=== PATIENT | male | born 1945 | race Caucasian/White ===

== ENCOUNTER 2017-01-04 06:53 | Inpatient (IN) ==
[2017-01-04] MEDS ORDERED: NS 1,000 ML IV ONE ×2 (06:56→07:25)
[2017-01-04] MEDS ORDERED: DUONEB (A & A) INH ONE (06:56)
[2017-01-04] MEDS ORDERED: SOLU-MEDROL IV ONE (06:56)
[2017-01-04 07:23] LABS: ALLEN TEST NO; BE -5.8 mmoll (-3.0-3.0); BLOOD TYPE ARTERIAL; DRAW SITE R FEMORAL; METHB 0.6 % (0.0-1.5); O2(CT) 18.3 mL/dL (15.0-23.0); PCO2(98.6) 43 mmHg (35-45); PO2(98.6) 65 mmHg (60-100); SAMPLE BLOOD; SAO2 92.2 % (95.0-100.0); THB 14.5 g/dL (11.5-17.4); pH(98.6) 7.29 (7.35-7.45)
--- NOTE | 2017-01-04 07:24 | Diag Imaging Result Doc PS360 ---
EXAM: CHEST-PORTABLE HISTORY: low O2 sat TECHNIQUE: AP portable at 0710 COMMENT: There are no previous studies available for comparison. Coarse interstitial opacities are present bilaterally suggesting pulmonary fibrosis. There is cardiomegaly. Possibility of superimposed pneumonia or pulmonary edema cannot be excluded in the absence of previous studies for comparison. Basilar honeycombing is noted on the previous abdominal CAT scan of 01/07/2013. IMPRESSION: Pulmonary fibrosis. Electronically signed by Travis Daniel 01/04/2017 7:22 AM
[2017-01-04] MEDS ORDERED: VANCOMYCIN 1 GM/NS 1 GM/250 ML IVPB IV ONE ×2 (07:25→10:00)
[2017-01-04] MEDS ORDERED: ZOSYN 3.375 GM/NS 3.375 GM/50 ML IVPB IV ONE (07:25)
[2017-01-04 07:27] LABS: MODALITY BI PAP
[2017-01-04 07:28] LABS: BASO% 0.2 % (0.0-0.8); EOS# 0.01 X1000 (0.0-0.7); EOS% 0.1 % (0.0-10.0); HEMATOCRIT 47.8 % (42.0-52.0); HEMOGLOBIN 15.3 g/dL (14.0-18.0); IMM GRAN# 0.07 X1000 (0.0-0.04); IMM GRAN% 0.4 % (0.0-0.5); LYMPH% 18.9 % (20.5-51.1); MCH 31.2 PG (27-31); MCV 97.6 FL (81-99); MONO# 0.98 X1000 (0.11-0.59); MONO% 5.6 % (1.7-9.3); MPV 10.6 FL (7.4-10.4); NEUT% 74.8 % (42.2-75.2); PLT 327 X1000 (130-400)
[2017-01-04 07:31] LABS: INR 1.28; PROTIME 13.7 Seconds (9.2-11.7); PTT 22.9 Seconds (22.0-36.0)
[2017-01-04 07:39] LABS: ALBUMIN 4.1 g/dL (3.5-5.0); CALCIUM 9.3 mg/dL (8.8-10.2); MAGNESIUM 2.7 mg/dL (1.5-2.7); POTASSIUM 5.1 mmol/L (3.5-5.1); TOTAL BILIRUBIN 0.95 mg/dL (0.20-1.00); TOTAL PROTEIN 8.1 g/dL (6.3-8.3)
[2017-01-04 07:49] LABS: URINE CULTURE NEEDED? NO; URINE MICRO REVIEW NEEDED? NO; URINE SOURCE CATH
[2017-01-04 07:56] LABS: BILIRUBIN URINE SMALL (NEGATIVE); BLOOD URINE NEGATIVE (NEGATIVE); COLOR YELLOW; GLUCOSE URINE NEGATIVE (NEGATIVE); LEUKOCYTES URINE NEGATIVE (NEGATIVE); NITRITE URINE NEGATIVE (NEGATIVE); PROTEIN URINE 30 mg/dL (NEGATIVE); SP GRAVITY URINE 1.026; TURBIDITY URINE HAZY (CLEAR); UR EPITHELIAL CELLS <10 /HPF (<10); URINE BACTERIA NEGATIVE /HPF; URINE RBC <10 /HPF (<10); URINE WBC <10 /HPF (<10); UROBILINOGEN URINE 2 mg/dL (NORMAL)
[2017-01-04 08:01] LABS: MANUAL DIFF NEEDED? NO
[2017-01-04] MEDS ORDERED: ATIVAN IV ONE (08:08)
[2017-01-04 08:09] LABS: UR AMPHETAMINES QUAL NONE DETECTED (NONE DETECT); UR BARBITUATES QUAL NONE DETECTED (NONE DETECT); UR BENZODIAZEPIN QUAL NONE DETECTED (NONE DETECT); UR CANNABINOIDS QUAL NONE DETECTED (NONE DETECT); UR COCAINE QUAL NONE DETECTED (NONE DETECT); UR METHADONE QUAL NONE DETECTED (NONE DETECT); UR OPIATES QUAL NONE DETECTED (NONE DETECT); UR OXYCODONE QUAL NONE DETECTED (NONE DETECT); UR PCP QUAL NONE DETECTED (NONE DETECT)
[2017-01-04] MEDS ORDERED: LEVOPHED 8 MG in D5 1/2 NS 250 ML IV SCH ×2 (08:15→09:00)
--- NOTE | 2017-01-04 08:41 | PROVIDER DOCUMENTATION ---
HPI-Respiratory General - General Chief Complaint: Shortness of Breath Stated Complaint: sob Time Seen by Provider: 01/04/17 06:56 Source: patient, family, EMS Allergies/Adverse Reactions: Patient Allergies Allergy/AdvReac Type Severity Reaction Status Date / Time No Known Allergies Allergy Verified 01/04/17 07:55 Home Medications: Home Medication List Medication Instructions Recorded Confirmed Last Taken Type Benzonatate 200 mg PO TID PRN 01/04/17 01/04/17 01/03/17 History Pantoprazole [Protonix] 40 mg PO DAILY@0700 01/04/17 01/04/17 01/03/17 History Prednisone 10 mg PO BID 01/04/17 01/03/17 History - History of Present Illness-Resp Nature of Presenting Problem: Pt was diagnosed with pulmonary fibrosis since one year ago. Been progressively getting worse. Severe SOB since one year ago and needs higher and higher O2 flows and could not keep any fluids down due to the distress. states that she could not take care of him at home any more. Pt's SO2=77% with 100% non- rebreather. Looks tired and lethargic, but can answer all questions. Refused to be intubated. Quality of Pain: reports: aching Severity in ED: reports: severe Onset/Duration: reports: other (One week ago) Timing: reports: still present, constant Context: denies: recent foreign travel, insect bite (possible tick), recent chemotherapy Exposure: reports: unknown cause Cough Quality/Degree: reports: moderate Episode Frequency: frequent episodes Current Respiratory Medication Therapy: Initiated see nurses note Modifying Factors: improves with: albuterol nebulizer, oxygen, rest, sitting upright Associated Symptoms: reports: cough, shortness of breath, wheezing. denies: fever/chills, flu-like symptoms Similar Symptoms Previously?: Yes Recently seen or treated by another doctor?: Yes Review of Systems - Adult - REVIEW OF SYSTEMS - ADULT Constitutional: reports: no symptoms reported Eyes: reports: no symptoms reported Ears, Nose, Mouth & Throat: reports: no symptoms reported Cardiovascular: reports: no symptoms reported. denies: chest pain, heart murmur Respiratory: reports: see HPI, chronic cough, dyspnea on exertion, shortness of breath, wheezing Gastrointestinal: reports: no symptoms reported Genitourinary: reports: no symptoms reported Musculoskeletal: reports: no symptoms reported Integumentary: reports: no symptoms reported Neurological: reports: no symptoms reported Psychiatric: reports: no symptoms reported Endocrine: reports: no symptoms reported Hematologic/Lymphatic: reports: no symptoms reported Allergic/Immunologic: reports: no symptoms reported All Other Systems: Reviewed and Negative Past History - Adult - PAST MEDICAL HISTORY-ADULT Review of Records: reports: Old Records Reviewed, Nursing Assessment Review, Medications Reviewed, Social history reviewed & non-contributory. Physical Exam-General - PHYSICAL EXAM-ADULT Initial Vital Signs Reviewed: Yes - CONSTITUTIONAL General Appearance: alert, moderate distress, cachetic, thin, lethargic. negative: anxious, combative - EYES Eyes: PERRL/EOMI, pink conjunctivae - HEAD, EARS, NOSE, MOUTH & THROAT HENMT: normocephalic/atraumatic, moist mucous membranes - NECK Neck: non-tender, full range of motion, supple - RESPIRATORY Respiratory: chest non-tender, lungs clear, normal breath sounds, no pleuratic chest pain, no respiratory distress, no accessory muscle use, respiratory distress - CARDIOVASCULAR Cardiovascular: normal peripheral pulses, regular rate, rhythm - GASTROINTESTINAL (ABDOMEN) Abdominal Exam: normal bowel sounds, non tender, soft, no organomegaly, no pulsatile mass - MUSCULOSKELETAL Back Exam: normal inspection, no CVA tenderness, no vertebral tenderness Extremity: normal range of motion, non-tender, normal gait, normal inspection - SKIN Integumentary: normal color, normal turgor, warm/dry - NEUROLOGIC Neurologic: no motor/sensory deficits, aphasia - PSYCHIATRIC Psych/Mental Status: normal mood/affect, normal thought content, normal thought process, oriented x 3 Progress - PLAN OF CARE/RESULTS Progress/Plan/Lab Results: Vital Signs - 8 hr 01/04/17 07:05 01/04/17 07:16 01/04/17 07:31 Temperature Pulse Rate 120 H 127 H Respiratory Rate 29 H 27 H Blood Pressure 107/74 99/55 O2 Sat by Pulse Oximetry 76 L 01/04/17 07:56 01/04/17 08:04 01/04/17 08:06 Temperature 97.6 F Pulse Rate 123 H 125 H 122 H Respiratory Rate 33 H 22 41 H Blood Pressure 94/71 94/71 O2 Sat by Pulse Oximetry 75 L 92 L 74 L Laboratory Results - last 24 hr 01/04/17 01/04/17 01/04/17 07:04 07:04 07:04 WBC 17.42 H RBC 4.90 Hgb 15.3 Hct 47.8 MCV 97.6 MCH 31.2 H MCHC 32.0 L RDW Std Deviation 13.8 Plt Count 327 MPV 10.6 H Immature Gran % (Auto) 0.4 Neut % (Auto) 74.8 Lymph % (Auto) 18.9 L [place] % (Auto) 5.6 Eos % (Auto) 0.1 Baso % (Auto) 0.2 Immature Gran # (Auto) 0.07 H Neut # (Auto) 13.03 H Lymph # (Auto) 3.30 [place] # (Auto) 0.98 H Eos # (Auto) 0.01 Baso # (Auto) 0.03 Segmented Neutrophils Not Reportable PT INR PTT (Actin FS) D-Dimer 1.68 H Specimen Type Sample Site pH pCO2 pO2 HCO3 Base Excess Oxyhemoglobin ABG O2 Sat (Calculated) ABG O2 Saturation ABG Carboxyhemoglobin ABG Methemoglobin Qamar Test A-a O2 Difference Total Hemoglobin Lactate Liter Flow Blood Gas Modality FiO2 % Inspiratory BiPAP Expiratory BiPAP Sodium 143 Potassium 5.1 Chloride 96 L Carbon Dioxide 24 L Anion Gap 23 BUN 40 H Creatinine 1.4 H Estimated GFR/1.73 m2 50 BUN/Creatinine Ratio 29 Glucose 127 H Calculated Osmolality 296 Calcium 9.3 Magnesium 2.7 Total Bilirubin 0.95 AST 146 H ALT 195 H Alkaline Phosphatase 72 Creatine Kinase 184 Troponin T Lce-K-Eiotfyfovmm Pept Total Protein 8.1 Albumin 4.1 Globulin 4.0 Albumin/Globulin Ratio 1.0 Lipase 41 Urine Source Urine Color Urine Turbidity Urine pH Ur Specific [place] Urine Protein Ur Glucose (Stick) Ur Ketones (Stick) Urine Blood Urine Nitrite Urine Bilirubin Urobilinogen Dipstick Urine Leukocytes Urine WBC (Auto) Urine RBC (Auto) U Epithel Cells (Auto) Urine Bacteria (Auto) Urine Opiates Screen Ur Oxycodone Screen Ur Methadone, Qual Ur Barbiturates Screen Ur Phencyclidine Scrn Ur Amphetamines Screen U Benzodiazepines Scrn Urine Cocaine Screen U Cannabinoids Screen 01/04/17 01/04/17 01/04/17 07:04 07:04 07:04 WBC RBC Hgb Hct MCV MCH MCHC RDW Std Deviation Plt Count MPV Immature Gran % (Auto) Neut % (Auto) Lymph % (Auto) [place] % (Auto) Eos % (Auto) Baso % (Auto) Immature Gran # (Auto) Neut # (Auto) Lymph # (Auto) [place] # (Auto) Eos # (Auto) Baso # (Auto) Segmented Neutrophils PT 13.7 H INR 1.28 PTT (Actin FS) 22.9 D-Dimer Specimen Type Sample Site pH pCO2 pO2 HCO3 Base Excess Oxyhemoglobin ABG O2 Sat (Calculated) ABG O2 Saturation ABG Carboxyhemoglobin ABG Methemoglobin Qamar Test A-a O2 Difference Total Hemoglobin Lactate Liter Flow Blood Gas Modality FiO2 % Inspiratory BiPAP Expiratory BiPAP Sodium Potassium Chloride Carbon Dioxide Anion Gap BUN Creatinine Estimated GFR/1.73 m2 BUN/Creatinine Ratio Glucose Calculated Osmolality Calcium Magnesium Total Bilirubin AST ALT Alkaline Phosphatase Creatine Kinase Troponin T 0.041 Bqj-[id number]-Fkxookexiys Pept 24900 H Total Protein Albumin Globulin Albumin/Globulin Ratio Lipase Urine Source Urine Color Urine Turbidity Urine pH Ur Specific [place] Urine Protein Ur Glucose (Stick) Ur Ketones (Stick) Urine Blood Urine Nitrite Urine Bilirubin Urobilinogen Dipstick Urine Leukocytes Urine WBC (Auto) Urine RBC (Auto) U Epithel Cells (Auto) Urine Bacteria (Auto) Urine Opiates Screen Ur Oxycodone Screen Ur Methadone, Qual Ur Barbiturates Screen Ur Phencyclidine Scrn Ur Amphetamines Screen U Benzodiazepines Scrn Urine Cocaine Screen U Cannabinoids Screen 01/04/17 01/04/17 01/04/17 07:20 07:42 07:42 WBC RBC Hgb Hct MCV MCH MCHC RDW Std Deviation Plt Count MPV Immature Gran % (Auto) Neut % (Auto) Lymph % (Auto) [place] % (Auto) Eos % (Auto) Baso % (Auto) Immature Gran # (Auto) Neut # (Auto) Lymph # (Auto) [place] # (Auto) Eos # (Auto) Baso # (Auto) Segmented Neutrophils PT INR PTT (Actin FS) D-Dimer Specimen Type ARTERIAL Sample Site R FEMORAL pH 7.29 L pCO2 43 pO2 65 HCO3 20.2 Base Excess -5.8 L Oxyhemoglobin 89.8 L* ABG O2 Sat (Calculated) 18.3 ABG O2 Saturation 92.2 L ABG Carboxyhemoglobin 1.90 ABG Methemoglobin 0.6 Qamar Test NO A-a O2 Difference 594.0 Total Hemoglobin 14.5 Lactate 6.00 H* Liter Flow 15.0 Blood Gas Modality BI PAP FiO2 % 100.0 Inspiratory BiPAP 12.0 Expiratory BiPAP 5.0 Sodium Potassium Chloride Carbon Dioxide Anion Gap BUN Creatinine Estimated GFR/1.73 m2 BUN/Creatinine Ratio Glucose Calculated Osmolality Calcium Magnesium Total Bilirubin AST ALT Alkaline Phosphatase Creatine Kinase Troponin T Syz-[id number]-Czcnfgwbqlz Pept Total Protein Albumin Globulin Albumin/Globulin Ratio Lipase Urine Source CATH Urine Color YELLOW Urine Turbidity HAZY Urine pH 5.0 Ur Specific [place] 1.026 Urine Protein 30 A Ur Glucose (Stick) NEGATIVE Ur Ketones (Stick) 10 A Urine Blood NEGATIVE Urine Nitrite NEGATIVE Urine Bilirubin SMALL A Urobilinogen Dipstick 2 A Urine Leukocytes NEGATIVE Urine WBC (Auto) <10 Urine RBC (Auto) <10 U Epithel Cells (Auto) <10 Urine Bacteria (Auto) NEGATIVE Urine Opiates Screen NONE DETECTED Ur Oxycodone Screen NONE DETECTED Ur Methadone, Qual NONE DETECTED Ur Barbiturates Screen NONE DETECTED Ur Phencyclidine Scrn NONE DETECTED Ur Amphetamines Screen NONE DETECTED U Benzodiazepines Scrn NONE DETECTED Urine Cocaine Screen NONE DETECTED U Cannabinoids Screen NONE DETECTED Orders Category Date Time Status Cardiac Monitoring DIRECTED Care 01/04/17 06:56 Active Saline Loc NOW Care 01/04/17 06:56 Active Physician/Provider Consults Routine Cons 01/04/17 08:31 Ordered CHEST-PORTABLE [RAD] Stat Exams 01/04/17 07:09 Completed ABG [RESP] Routine Lab 01/04/17 07:20 Completed BLOOD CULTURE [BLDCUL] Stat Lab 01/04/17 07:04 Results CBC WITH ELECTRONIC DIFF [HEME] Stat Lab 01/04/17 07:04 Completed CK PROFILE [SP CHEM] Q8H Lab 01/04/17 08:31 Uncollected CK PROFILE [SP CHEM] Q8H Lab 01/04/17 16:31 Uncollected CK PROFILE [SP CHEM] Q8H Lab 01/05/17 00:31 Uncollected CK PROFILE [SP CHEM] Stat Lab 01/04/17 07:04 Completed COMPREHENSIVE METABOLIC PANEL [CHEM] Stat Lab 01/04/17 07:04 Completed D-DIMER [CHEM] Stat Lab 01/04/17 07:04 Completed LACTATE, PLASMA [CHEM] Stat Lab 01/04/17 07:42 Ordered LIPASE [CHEM] Stat Lab 01/04/17 07:04 Completed MAGNESIUM [CHEM] Stat Lab 01/04/17 07:04 Completed PRO B-NATRIURETIC PEPTIDE Stat Lab 01/04/17 07:04 Completed PROTIME WITH INR [COAG] Stat Lab 01/04/17 07:04 Completed PTT [COAG] Stat Lab 01/04/17 07:04 Completed TROPONIN T Q8HR Lab 01/04/17 13:00 Ordered TROPONIN T Q8HR Lab 01/04/17 21:00 Ordered TROPONIN T Q8HR Lab 01/05/17 05:00 Ordered TROPONIN T Stat Lab 01/04/17 07:04 Completed UA NIMS W/REFLEX CULT [URINALYSIS] Stat Lab 01/04/17 07:42 Completed URINE DRUG SCREEN Stat Lab 01/04/17 07:42 Completed 0.9% Sodium Chloride Inj [Ns] 1,000 ml Med 01/04/17 06:56 Discontinued IV 999 mls/hr 0.9% Sodium Chloride Inj [Ns] 1,000 ml Med 01/04/17 07:25 Discontinued IV 999 mls/hr Albuterol 2.5MG/Ipratrop 0.5MG [Duoneb (A & A)] Med 01/04/17 06:56 Discontinued 3 ml INH NOW ONE Dextrose 5%-0.45% NaCl Inj [D5 1/2 Ns] 250 ml Med 01/04/17 08:15 Discontinued Norepinephrine [Levophed] 8 mg IV As Directed Dextrose 5%-0.45% NaCl Inj [D5 1/2 Ns] 250 ml Med 01/04/17 09:00 Active Norepinephrine [Levophed] 8 mg IV As Directed Lorazepam [Ativan] Med 01/04/17 08:08 Discontinued 0.5 mg IV NOW ONE Methylprednisolone Sod Succ [Solu-Medrol] Med 01/04/17 06:56 Discontinued 125 mg IV NOW ONE Piperacil/Tazobact 3.375 gm/Ns [Zosyn 3.375 gm/Ns] Med 01/04/17 07:25 Discontinued 3.375 gm in 50 ml IV NOW Vancomycin 1 gm/Ns Med 01/04/17 07:25 Discontinued 1 gm in 250 ml IV NOW Aerosol Treatments Routine Oth 01/04/17 06:58 Completed Aerosol Treatments Stat Oth 01/04/17 06:58 Completed EKG [EKG] Stat Ther 01/04/17 06:56 Ordered Echo Spec/Color Dop W/O Contra Routine Ther 01/04/17 08:31 Ordered Transfer/Admit Order [TRANSFER] Routine Transfer 01/04/17 08:26 Ordered Result Diagrams: 01/04/17 07:04 01/04/17 07:04 - REASSESSMENT Reassessment #1 Time Reassessed: 08:41 Status: improving (Pt is stable on Bi-PAP) - XRAY 1 XRAY Study: Chest Impression: Abnormal (Pulmonary fibrosis) - CONSULTS/PCP/HOSPITALIST Notification #1 *Consult/PCP/Hospitalist*: Kris/Dr. Erickson Time Discussed: 08:42 Consult Disposition: Will see in ED, Admit Departure - Departure Date of Disposition Decision: 01/04/17 Time of Disposition Decision: 08:43 DIAGNOSIS: Respiratory failure Disposition: ADMITTED INPATIENT 09 Certified Medical Emergency: Emergent Condition: Stable Referrals and Follow-Ups: Tong Lucio MD [Primary Care Provider] - - Critical Care Note This patient required my direct & personal management of CC.: Yes Total Time (mins): 45 Critical Care Statement: This patient required my direct personal management to treat or rule out processes, the absence of which, could potentiallly result in sudden, clinically significant life or limb threatening deterioration.
--- NOTE | 2017-01-04 08:46 | EKG Report ---
Test Performed on : 01/04/2017 07:09:41 AM Test Reason : SOB Blood Pressure : / mmHG Vent. Rate : 123 BPM Atrial Rate : 123 BPM P-R Int : 134 ms QRS Dur : 078 ms QT Int : 324 ms P-R-T Axes : 054 111 -42 degrees QTc Int : 463 ms Sinus tachycardia. Possible Left atrial enlargement Right axis deviation Possible Right ventricular hypertrophy ST \T\ T wave abnormality, consider inferior ischemia Abnormal ECG When compared with ECG of 07-JAN-2013 15:11, Vent. rate has increased BY [address] now depressed in Inferior leads T wave inversion now evident in Inferior leads Unconfirmed Result
[2017-01-04 08:52] VITALS: BP 90/65
[2017-01-04] MEDS ORDERED: LOVENOX SUBQ SCH (09:08)
[2017-01-04] MEDS ORDERED: PROTONIX IV SCH (09:08)
[2017-01-04] MEDS ORDERED: SODIUM CHLORIDE 0.9% INJ SCH (09:08)
[2017-01-04] MEDS ORDERED: VANCOMYCIN IV PER PHARMACY MISC SCH (09:08)
[2017-01-04] MEDS ORDERED: DUONEB (A & A) INH SCH (09:08)
[2017-01-04] MEDS ORDERED: DUONEB (A & A) INH PRN (09:08)
[2017-01-04 09:54] LABS: ALLEN TEST YES; BE -9.7 mmoll (-3.0-3.0); BLOOD TYPE ARTERIAL; DRAW SITE L RADIAL; METHB 0.8 % (0.0-1.5); O2(CT) 18.9 mL/dL (15.0-23.0); PCO2(98.6) 37 mmHg (35-45); PO2(98.6) 66 mmHg (60-100); SAMPLE BLOOD; SAO2 92.6 % (95.0-100.0); SRATE 4 BPM; THB 14.9 g/dL (11.5-17.4); pH(98.6) 7.26 (7.35-7.45)
[2017-01-04 09:58] LABS: MODALITY BI PAP
--- NOTE | 2017-01-04 10:12 | HISTORY AND PHYSICAL ---
PRIMARY CARE PHYSICIAN: Tong Lucio MD. CHIEF COMPLAINT: Respiratory failure. HISTORY OF PRESENT ILLNESS: Mr. Rodriguez is an unfortunate 71-year-old male with a history of pulmonary fibrosis around 1 year ago that has progressively been getting worse. His brought him to the ER today because he is becoming more lethargic and dyspneic. She felt she could not take care of him any longer. The patient is unable to give a reliable history at this time secondary to her respiratory status and the fact that he is on BiPAP. His is at the bedside, able to answer questions. The patient's denies that he has had any fevers or cough with expectoration. She denies that he has had any chest pain, but does report some lower extremity edema and orthopnea. When he got to the ER today, his initial O2 saturations were in the low 70s. He was immediately placed on BiPAP, ABG revealed adequate ventilation but he was hypoxic. The patient at this time is refusing to be intubated. Oxygen in the ER did bring up his O2 saturations but the patient is still quite dyspneic and tachypneic. Chest x-ray was consistent with his pulmonary fibrosis. Superimposed pneumonia or pulmonary edema could not be excluded. His blood pressure was low requiring Levophed and IV fluid resuscitation. Lactic acid is noted to be 6. As such, he is going to be admitted to the critical care unit for close treatment and evaluation. PAST MEDICAL HISTORY: 1. Pulmonary fibrosis. 2. Hypothyroidism, currently uncontrolled. 3. GERD. PAST SURGICAL HISTORY: None. SOCIAL HISTORY: No history of tobacco, alcohol or drug use. He is . is at the bedside. FAMILY HISTORY: Mother with pulmonary disorder of unknown specificity. Father is still alive. He has a history of CAD status post SC. REVIEW OF SYSTEMS: Unable to be obtained. ALLERGIES: No known drug allergies. HOME MEDICATIONS: 1. Prednisone 10 mg b.i.d. 2. Tessalon Perles 200 mg p.o. t.i.d. 3. Protonix 40 mg daily. PHYSICAL EXAMINATION: VITAL SIGNS: Blood pressure is 90/65, heart rate 125, respiratory rate is 32. O2 saturations 77% on 100% BiPAP. Temperature is 97.6 degrees. GENERAL: This is a chronically ill-appearing 71-year-old male, lying in hospital bed in acute respiratory distress. NEUROLOGIC: The patient is somewhat lethargic, but opens his eyes to verbal stimulus. He follows commands. We did not take his BiPAP off to ask orientation questions as he is in acute respiratory failure. HEENT: Head is atraumatic and normocephalic. His pupils are equal, round, reactive to light. Trachea is midline. No JVD. CHEST: Decreased throughout with Velcro-like crackles in bilateral bases. CV: Tachy but regular. S1-S2 is noted. No murmurs. GI: Soft, nondistended, nontender. Bowel sounds are hypoactive. EXTREMITIES: 2+ pitting edema bilaterally with palpable pulses but diminished. DIAGNOSTIC DATA: Chest x-ray shows pulmonary fibrosis, possibility of superimposed pneumonia or pulmonary edema could not be evaluated. LABORATORY DATA: WBC 17.42, hemoglobin 15.3, hematocrit 47. Platelet count 327,000. INR 1.28. D-dimer 1.68. ABG on 100% BiPAP pH 7.29, CO2 43, O2 65, bicarb 20.2. Oxyhemoglobin 89.8, lactic acid 6. Chemistry sodium 143, potassium 5.1, chloride 96, CO2 24, anion gap 24, BUN 40, creatinine 1.4, glucose is 127, calcium 9.3, magnesium 2.7, AST 146, ALT 195, CK 184, troponin 0.041, proBNP 75247, lipase is 41. Urine does not show anything acute. Tox screen is negative. ASSESSMENT AND PLAN: 1. Acute hypoxic respiratory failure: Likely multifactorial in nature to include his pulmonary fibrosis which is likely an acute exacerbation on chronic disease. He also likely has some superimposed pneumonia and questionable heart failure. He is going to be admitted to the ICU and put on BiPAP, he does meet intubation criteria, but he is a DNR level 1 and does not wish to be intubated. We will continue aggressive pulmonary toilet and breathing treatments, IV steroids, and antibiotics and we will consult Dr. Pichardo with Pulmonary. 2. Septic shock: Patient meets criteria with persistent hypotension requiring vasopressor, lactic acidosis, tachypnea, leukocytosis and likely source of pneumonia. Will brown culture the patient and place him on broad-spectrum antibiotics with vancomycin and Zosyn. 3. Elevated metabolic anion gap acidosis: Likely secondary to profound lactic acidosis. We will continue IV fluid hydration, he is actually compensating quite well. Will continue to trend his lactate and check serial ABGs. 4. Pulmonary fibrosis: We will continue IV steroids and consult Pulmonary. Continue breathing treatments. 5. Acute kidney injury: Creatinine 1.4 with a BUN of 40. Will continue aggressive IV fluid hydration and monitor his creatinine. This is likely all prerenal. 6. Cor pulmonale: [place] [id number] with lower extremity edema and likely passive hepatic venous congestion. Given his history of pulmonary fibrosis, right heart failure is likely. However we will trend his enzymes and check an echocardiogram and monitor telemetry. 7. Volume depletion. Continue IV fluids. 8. Deep venous thrombosis and gastrointestinal prophylaxis provided with Lovenox and Protonix. CRITICAL CARE TIME WITH THIS PATIENT: Greater than 45 minutes. Dictated by ENRIQUETA Orozco for Stalin Chamberlain MD cc: ENRIQUETA Orozco MD Stephen A. Branning, MD
[2017-01-04] MEDS ORDERED: ZOSYN 3.375 GM/NS 3.375 GM/50 ML IVPB IV SCH (14:00)
--- NOTE | 2017-01-04 14:16 | DISCHARGE SUMMARY ---
ADMISSION DATE: 01/04/2017 DISCHARGE DATE: 01/04/2017 SUMMARY HOSPITAL COURSE: Mr. Rodriguez is a 71-year-old male with a history of pulmonary fibrosis diagnosed about 1 year ago. He came into the ER today with acute respiratory distress with initial O2 saturations in the low 70s to high 60s. Per his request, he did not want to be intubated. He is placed on BiPAP and put in the ICU. He was noted to be hypoxic and tachycardic and hypotensive requiring Levophed. He was in the ICU for no more than 30 minutes when he began to sally down and went into cardiopulmonary arrest. Because he was DNR, no resuscitation attempts were made and was pronounced at 9:56. His is at the bedside and has been made aware. The body will be released to the home of their choosing. CAUSE OF : Respiratory failure. TIME OF : 9:56. Dictated by ENRIQUETA Orozco for Stalin Chamberlain MD cc: ENRIQUETA Orozco MD
[2017-01-04] MEDS ORDERED: SOLU-MEDROL IV SCH (16:00)
[2017-01-05] MEDS ORDERED: VANCOMYCIN 1.5 GM in NS 250 ML IV SCH (16:00)
== END 2017-01-04 09:56 | disposition expired ==
LOC: ED 06:53 → ICU 09:03
PROVIDERS: ATTEND Internal Medicine